=== PATIENT | female | born 1955 | race Caucasian/White ===

== ENCOUNTER 2016-11-15 22:19 | Emergency (ER) | payer OTHER ==
[~2016-11-15] VITALS: Ht 162.6 cm; Wt 69.9 kg
[~2016-11-15 22:19] MED LIST: AUGMENTIN 875 M1 TAB PO; COZAAR50 MG PO; FLAGYL250 MG PO; GLUCOPHAGE850 MG PO; PERCOCET 5/3251 TAB PO
[2016-11-15 22:27] VITALS: BP 161/98
--- NOTE | 2016-11-15 22:34 | NUR ---
PT TAKEN TO BED 3
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
--- NOTE | 2016-11-15 22:51 | NUR ---
PT TO CT AT THIS TIME
--- NOTE | 2016-11-15 23:05 | NUR ---
PT RETURNED FROM CT
--- NOTE | 2016-11-15 23:05 | NUR ---
PT ATTREMPTING TO GIVE URINE SAMPLE AT THIS TIME
[2016-11-15] MEDS ORDERED: KETOROLAC 30 MG/ML VIAL IM ONE (23:35)
[2016-11-15 23:59] VITALS: BP 157/97
== END 2016-11-16 | disposition home or self-care (01) ==
LOC: MED 22:32
DX: S16.1XXA Strain of muscle, fascia and tendon at neck level, initial encounter (principal); I10 Essential (primary) hypertension; E11.9 Type 2 diabetes mellitus without complications; V89.2XXA Person injured in unspecified motor-vehicle accident, traffic, initial encounter; Y93.89 Activity, other specified; Y92.89 Other specified places as the place of occurrence of the external cause; Y99.8 Other external cause status
CPT/HCPCS: 72040; 81001; 82948; 96372; 99285; C1758; J1885

== ENCOUNTER 2017-03-07 19:20 | Emergency (ER) | payer OTHER ==
[~2017-03-07] VITALS: Ht 160 cm; Wt 78.1 kg
[~2017-03-07 19:20] MED LIST changes: +AMOX-842 PO; -AUGMENTIN 875 M1 TAB PO; +COZ50 PO; -COZAAR50 MG PO; -FLAGYL250 MG PO; -GLUCOPHAGE850 MG PO; +METF850T PO; +METR250T2 PO; +OXYC1TAB PO; -PERCOCET 5/3251 TAB PO
[2017-03-07 19:28] VITALS: BP 128/76
--- NOTE | 2017-03-07 19:41 | NUR ---
PT TAKEN TO BED 7
[2017-03-07] MEDS ORDERED: TETRACAINE 0.5% OPTH SOL 2 ML BTL ONE (20:03)
--- NOTE | 2017-03-07 20:07 | NUR ---
61Y F BIB FAMILY C/O RIGHT EYE PAIN X 1 DAY PT DENIES ANY TRAUMA TO THE AREA. EYE IS RED. PT DENIES ANY N/V/D, SOB, CP AT THE MOMENT. PT BREATHING IS UNLABORED AND CLEAR BILAT. PT AAOX4. FAMILY IS BEDSIDE.
--- NOTE | 2017-03-07 20:09 | NUR ---
MARIA GUADALUPE FRASER EVALUATING PATIENT
[2017-03-07] MEDS ORDERED: FLUORESCEIN OPTH STRIP 1 MG ONE (20:18)
--- NOTE | 2017-03-07 20:36 | NUR ---
Patient discharged with v/s stable. Written and verbal after care instructions given and explained. Patient alert, oriented and verbalized understanding of instructions. Ambulatory with steady gait. All questions addressed prior to discharge. ID band removed. Patient advised to follow up with PMD. Rx of MOTRIN 600MG, ERYTHROMYCIN 0.5% OPTHALMIC, given. Patient educated on indication of medication including possible reaction and side effects. Opportunity to ask questions provided and answered.
[2017-03-07 20:37] VITALS: BP 119/72
== END 2017-03-07 20:36 | disposition home or self-care (01) ==
LOC: MED 19:20
DX: S05.01XA Injury of conjunctiva and corneal abrasion without foreign body, right eye, initial encounter (principal); X58.XXXA Exposure to other specified factors, initial encounter; E11.9 Type 2 diabetes mellitus without complications; I10 Essential (primary) hypertension; Y93.89 Activity, other specified; Y92.89 Other specified places as the place of occurrence of the external cause; Y99.8 Other external cause status
CPT/HCPCS: 99283